=== PATIENT | female | born 1955 | race Caucasian/White ===

== ENCOUNTER 2016-06-03 01:21 | Inpatient (IN) | payer OTHER ==
[~2016-06-03] VITALS: Ht 162.6 cm; Wt 97.5 kg
[~2016-06-03 01:21] MED LIST: ASPIRIN325 M2 PO; LEVOTHYROXINE25 MCG PO; PANTOPRAZOLE SO40 M1 PO; VALSARTAN-HCTZ1 EAC1 PO
--- NOTE | 2016-06-03 09:50 | Operative Report ---
Operative/Inv Procedure Report Surgery Date: 06/03/16 Name of Procedure: Left total knee arthroplasty Pre-Operative Diagnosis: Left knee primary osteoarthritis Post-Operative Diagnosis: Same Estimated Blood Loss: less than 50ml Surgeon/Cake Puller: YAAKOV ROLON,Tanner FREGOSO Anesthesia: block Implants: Halle triathlon total knee system--size 5 femur, size 4 tibia, 9 mm cruciate retaining polyethylene, 31 patella Drains: None Specimens: Femoral, tibial, patellar bone Microbiology: Urine Tourniquet: 59 minutes Complications: None Condition: Stable Operative Indication: Patient is a 61-year-old woman who has a long history of years of gradually worsening left knee symptoms. She was diagnosed with a history osteoarthritis. She developed end-stage degenerative changes and symptoms interfere with normal activities of daily living including prolonged standing or walking, getting up from a seated position as well as gains and out of vehicles. On exam she has also developed a severe flexion contracture to approximately 15. She underwent conservative management including medications, activity modification and injections. She's had short-term relief with conservative measures. She wished to proceed with total knee arthroplasty after risks, benefits and patient discussed including but not limited to persistent knee pain, need for subsequent surgery, infection, DVT, injury to blood vessel or nerve and anesthesia risks. Operative/Procedure Note Note: Patient was brought to the operating room and transferred to the operating table. Once under appropriate anesthesia the left lower extremity was prepped and draped in standard fashion. Preoperative IV antibiotics were given prophylactically. The left lower extremity was elevated exsanguinated and tourniquet was inflated to 300 mm of pressure. A standard anterior incision was made for anticipated medial patellar approach to the knee. Incision was taken down sharply to the underlying retinaculum. A medial retinacular approach was used with minimal extension into the quadriceps tendon. Osteophyte formations were excised of the distal femur and tibia. There was no evidence of any remnant of the ACL. PCL was found to be intact. Remnants of the medial and lateral meniscal tissues were excised. Patella was subluxed and knee was flexed. Retractors were placed medially and laterally. I then used a drill to enter the intramedullary canal for the intramedullary guide for the femur. A 6 cut was predetermined with a 10 mm thickness cut to compensate for patient's flexion contracture. The cut was made while protecting the soft tissues. The femur was then sized to a size 5. Size 5 cutting jig was pinned in place with 3 satisfied with the preparation of the femur. I then turned my attention to the tibia. I used the extra medullary tibial guide. The cutting block was pinned in position for a neutral cut from medial to lateral and reproducing patient's posterior slow-paced on preoperative templating and intraoperative findings. Again the soft tissues were protected during this portion of procedure as well. The cut was made. The tibia was sized to a size 4. I did a trial reduction was size 4 tibia size 5 femur and a 9 mm polyethylene insert. I was satisfied with the soft tissue balancing. No evidence of liftoff with the tibial tray. I then completed the preparation of the patella by measuring, removing the appropriate thickness of the patella and restoring that thickness with a 31 mm patella. The 3 lug holes were drilled. Trialing was done. There was no need for a lateral release. Good fell femoral tracking. I then removed all instruments after marking my rotation of the tibia after taken the knee through range of motion. I drilled the lug holes for the femur and then removed all instrumentation from the knee. Tibial preparation was finished with the appropriate tibial punch. All instrumentation was removed. Copious irrigation of the knee followed. I used the anterior chamfer bone of the femoral cut to plug the intramedullary hole that was made during preparation of the distal femur. This would minimize postoperative hemarthrosis and knee swelling. Cement was being mixed on the back table. Once the cement was ready was applied to the dry clean bony surfaces of the tibia. The size 4 tibial component was impacted in place. Excess cement was removed with curettes. Cement was applied to the dry clean bony surfaces of the femur. The size 5 femur was impacted in place and excess cement was removed with curettes. Cement was applied to the dry clean bony surfaces of the patella after the 9 mm Milena ethylene insert was applied and the knee was taken out to full extension. Excess cement was removed from the patella using a knife. During the cement hardening process I did a periarticular pericapsular injection of a cocktail which included ropivacaine with epinephrine and Toradol for postoperative pain and inflammation management. Once the cement was hardening took the knee through range of motion. Small pieces of excess cement were removed with osteotome. I was satisfied with the soft tissue balancing with a 9 mm insert. Full full extension with about gapping. No mid flexion instability. Flexion was full to gravity. The trial polyethylene was then removed. Copious irrigation the tibial tray followed. I made sure there was no remaining soft tissue, bone fragments or cement fragments within the tibial tray. I then impacted the definitive size 9 mm cruciate retaining polyethylene insert. The locking mechanism was confirmed. Copious irrigation the knee followed. I was satisfied with the stability in all planes as I was before. Copious irrigation followed every level of closure thereafter. Tourniquet was deflated at 59 minutes. Hemostasis was obtained. No need for a drain. The retinacular incision and medial quadriceps incision was repaired with interrupted #1 Vicryl sutures. Subcutaneous tissues closed with 2-0 Vicryl in 2 layers and the skin was closed with a running 3-0 Vicryl suture with the knee in flexion. Appropriate dressings were applied and patient was awakened and taken to recovery room in good condition. No intraoperative Locations. Blood loss was minimal. Discharge Disposition: PACU
--- NOTE | 2016-06-03 14:14 | PN- Orthopedic ---
Subjective Subjective: Awake, alert, no specific complaints at this time. No nausea, tolerating liquids Pain well controlled Objective Vital Signs and I&Os Ruiz output good bp: 122/69 HR 90 sinus RR 16 Sat 96% 3LNC Physical Exam: General: alert and oriented times three Chest: clear anteriorly bilaterally, RRR Abd: soft, good bs Ext: warm, no edema, positive sensate, no calf tenderness, ALPS in place, + movement LLE toes Wound: dressed, dry, ice pack in place OnQ in place Assessment/Plan Assessment/Plan 61 yo female s/p L TKR pain management dvt ppx - ALPS and coumadin (5mg ordered for tonight) abx for 24 hrs post op PT - WBAT Core Measures/Miscellaneous Ruiz Catheter Date In: 06/03/16 Still Needed? Yes (24 hrs post op) Venous Thromboembolism VTE Risk Factors: Age > 40, Surgery VTE Contraindications: No Contraindications VTE Diagnosis: No Beta Meagan Is Beta Meagan a Home Med? No Antibiotics Is Patient on Antibiotics? Yes If Yes: prophylaxis (24 hrs post op)
[2016-06-03 15:00] VITALS: BP 138/88
[2016-06-03 16:00] VITALS: BP 124/82
[2016-06-03 18:00] VITALS: BP 134/70
[2016-06-03 20:05] VITALS: BP 138/72
[2016-06-03 22:15] VITALS: BP 132/88
[2016-06-04 00:12] VITALS: BP 142/76
[2016-06-04 03:49] VITALS: BP 116/63
--- NOTE | 2016-06-04 07:25 | PN- Orthopedic ---
See Addendum Subjective Subjective: The patient is seen this morning postoperatively day #1. She reports that her pain is under adequate control and she has no other complaints the current time aside from a sore left wrist where an IV infiltrated. She denies any chest pain or difficulty breathing and is eager to have her fluids discontinued because she has put out a lot of urine from her Ruiz. Objective Vital Signs and I&Os Vital Signs Date Time Temp Pulse Resp B/P Pulse O2 O2 Flow FiO2 Ox Delivery Rate 06/04 0349 97.8 75 20 116/63 96 Nasal 1.0L Cannula / 0012 97.8 80 20 142/76 94 Nasal 1.0L Cannula / 0000 96 Nasal 1.0L Cannula / 2215 85 20 132/88 95 Nasal 2.0L Cannula 06/03 2040 Nasal 2.0L Cannula /2004 88 18 138/72 94 Room Air / 1800 974.0 86 20 134/70 94 Nasal 2.0L Cannula / 1600 97.0 80 20 124/82 94 Nasal 2.0L Cannula / 1500 96.8 85 20 138/88 95 Nasal 4.0L Cannula / 1500 96.8 85 16 138/88 95 Nasal 4.0L Cannula Intake & Output / 0800 03/07 0000 03/06 1600 03/06 0800 03/06 0000 03/05 1600 Intake Total 920 520 Output Total 1000 1800 Balance -80 -1280 Intake, IV 800 400 Intake, Oral 120 120 Output, Urine 1000 1800 Patient 215 lb Weight Physical Exam: Gen.: Alert and in no obvious distress Skin: Warm and dry Extremities: Bilateral lower extremities are warm without calf tenderness or significant edema. Gross motor and sensory are intact. Left knee surgical dressing is clean, dry, and intact. There is On-Q pain pump in place. Assessment/Plan Assessment/Plan Assessment: 61-year-old female status post left total knee arthroplasty postoperative day #1. The patient is progressing as expected and her pain is under adequate control. Plan: Out of bed with physical therapy patient is weightbearing as tolerated Continue current pain regiment Follow-up morning laboratory studies and dose Coumadin for an INR between 2 and 3 Hep-Lock IV fluids and DC Ruiz catheter Continue On-Q pain pump GI and DVT prophylaxis For surgical dressing change tomorrow Core Measures/Miscellaneous Ruiz Catheter Date In: 06/03/16 Venous Thromboembolism VTE Risk Factors: Age > 40, Surgery VTE Contraindications: No Contraindications VTE Diagnosis: No Beta Meagan Is Beta Meagan a Home Med? No Antibiotics Is Patient on Antibiotics? No
[2016-06-04 08:09] LABS: ABSOLUTE BASOPHIL COUNT 0 /CUMM (0.0-0.2); ABSOLUTE EOSINOPHIL COUNT 0 /CUMM (0.0-0.7); ABSOLUTE GRANULOCYTE CT 9.7 /CUMM (1.4-6.5); ABSOLUTE LYMPH COUNT 1.4 /CUMM (1.2-3.4); ABSOLUTE MONOCYTE COUNT 0.9 /CUMM (0.10-0.60); BASOPHIL % 0.1 % (0.0-2.0); EOSINOPHIL % 0 % (0-5); GRANULOCYTE % 80.7 % (42.2-75.2); HEMATOCRIT 34.8 % (37-47); MEAN CORPUSCULAR HGB 30.7 PG (27.0-31.0); MEAN CORPUSCULAR HGB CONC 34.1 G/DL (33.0-37.0); MEAN PLATELET VOLUME 8.9 FL (7.4-10.4); PLATELET COUNT 241 /CUMM (130-400); RBC DISTRIBUTION WIDTH 12.6 % (11.5-14.5); RED BLOOD CELL CT 3.87 /CUMM (4.20-5.40)
[2016-06-04 08:16] VITALS: BP 142/66
[2016-06-04 14:37] VITALS: BP 140/77
[2016-06-04 22:00] VITALS: BP 124/70
[2016-06-05 07:09] VITALS: BP 119/71
--- NOTE | 2016-06-05 07:33 | PN- Orthopedic ---
See Addendum Subjective Subjective: NAEO. Patient without new complaints of. Pain improved after On-Q pump was adjusted. Tolerate diet without nausea vomiting. Passing flatus, no bowel movement. Bed and ambulating with PT. No chest pain or shortness of breath. Objective Vital Signs and I&Os Vital Signs Date Time Temp Pulse Resp B/P Pulse O2 O2 Flow FiO2 Ox Delivery Rate 06/04 2200 97.4 80 20 124/70 97 Room Air 06/04 1437 98.1 73 20 140/77 97 Room Air 06/04 0919 75 142/66 06/04 0830 20 96 Room Air 06/04 0816 97.9 75 18 142/66 98 Nasal 2.0L Cannula 06/04 08 95 Nasal 1.0L Cannula Intake & Output 06/05 0806/05 0000 06/04 1600 06/04 0800 06/04 0000 06/03 1600 Intake Total 360 480 920 520 Output Total 500 1081 194 3712 1800 Balance -140 -670 -300 -480 -1280 Intake, IV 800 400 Intake, Oral 360 480 120 120 Output, Urine 500 7385 576 2093 1800 Patient 215 lb Weight Physical Exam: General: NAD, comfortable, A&Ox3 Chest: CTAB, no wheezes, no rales. Heart S1S2 normal. Abdomen: soft, nontender, nondistended. Ext: Left knee incision intact with Steri-Strips in plac without surrounding erythema, swelling, signs of infection. No calve swelling/TTP, neurovascularly intact bilateral lower extremities Current Medications: Current Medications Sig/Leoncio Start time Last Medication Dose Route Stop Time Status Admin Al Hydroxide/Mg 30 ML Q6P PRN 06/03 1600 AC Hydroxide PO Cyanocobalamin 1,000 MCG BID 06/04 1000 AC 06/04 PO 2139 Diphenhydramine HCl 25 MG Q4 HRS NEEDED PRN 06/03 2130 AC 06/03 IV 2154 Docusate Sodium 100 MG DAILY NEEDED PRN 06/03 1600 AC PO Ferrous Sulfate 325 MG DAILY 06/04 1000 AC 06/04 PO 1130 Hydrochlorothiazide 12.5 MG DAILY 06/04 1000 AC 06/04 PO 0919 Ketorolac 30 MG Q6-PRN PRN 06/04 1545 AC 06/04 Tromethamine IV 06/06 1546 2139 Levothyroxine Sodium 0.025 MG DAILY AC 06/04 0700 AC 06/05 PO 0526 Losartan Potassium 50 MG DAILY 06/04 1000 AC 06/04 PO 0919 Morphine Sulfate 2 MG Q3P PRN 06/03 1600 AC IV Morphine Sulfate 4 MG Q3P PRN 06/03 1600 AC 06/03 IV 1855 Omeprazole 40 MG DAILY AC 06/03 2345 AC 06/03 PO 2350 Ondansetron HCl 4 MG Q6P PRN 06/03 1600 AC 06/04 IV 2023 Oxycodone/ 1 TAB Q4P PRN 06/03 1600 AC Acetaminophen PO Oxycodone/ 2 TAB Q4P PRN 06/03 1600 AC 06/05 Acetaminophen PO 0232 Pantoprazole Sodium 40 MG AT BEDTIME 06/04 2200 AC 06/04 IV 2139 Pantoprazole Sodium 40 MG DAILY 06/04 1000 DC IV Polyethylene Glycol 17 GM DAILY NEEDED PRN 06/03 1600 AC PO Ropivacaine 500 ML ONCE ONE 06/03 1430 AC 06/03 ON-Q Ball 1 BAG INJ 06/05 1629 1553 Senna/Docusate Sodium 2 TAB AT BEDTIME NEED.. 06/03 1600 AC PO Warfarin Sodium 5 MG COUMADIN 1700 ONE 06/04 1700 DC 06/04 PO 06/04 1701 1610 Results Last 48 Hours of Labs: Laboratory Tests 06/04 0700 Chemistry Sodium (137 - 145 mmol/L) 139 Potassium (3.5 - 5.1 mmol/L) 4.2 Chloride (98 - 107 mmol/L) 103 Carbon Dioxide (22 - 30 mmol/L) 28 Anion Gap (5 - 16) 8 BUN (7 - 17 mg/dL) 11 Creatinine (0.5 - 1.0 mg/dL) 0.8 Estimated GFR (>60 ml/min) > 60 BUN/Creatinine Ratio (7 - 25 %) 13.8 Coagulation PT (9.4 - 12.5 SEC) 12.0 INR (0.90 - 1.19) 1.14 Hematology CBC w Diff NO MAN DIFF REQ WBC (4.8 - 10.8 /CUMM) 12.0 H RBC (4.20 - 5.40 /CUMM) 3.87 L Hgb (12.0 - 16.0 G/DL) 11.9 L Hct (37 - 47 %) 34.8 L MCV (81.0 - 99.0 FL) 90.0 MCH (27.0 - 31.0 PG) 30.7 RDW (11.5 - 14.5 %) 12.6 Plt Count (130 - 400 /CUMM) 241 MPV (7.4 - 10.4 FL) 8.9 Gran % (42.2 - 75.2 %) 80.7 H Lymphocytes % (20.5 - 51.1 %) 11.3 L Monocytes % (1.7 - 9.3 %) 7.9 Eosinophils % (0 - 5 %) 0 Basophils % (0.0 - 2.0 %) 0.1 Absolute Granulocytes (1.4 - 6.5 /CUMM) 9.7 H Absolute Lymphocytes (1.2 - 3.4 /CUMM) 1.4 Absolute Monocytes (0.10 - 0.60 /CUMM) 0.9 H Absolute Eosinophils (0.0 - 0.7 /CUMM) 0 Absolute Basophils (0.0 - 0.2 /CUMM) 0 PUBS MCHC (33.0 - 37.0 G/DL) 34.1 Assessment/Plan Assessment/Plan 61yo F POD#2 status post left total knee arthroplasty. AVSS, patient progressing well. - Pain control - When necessary Zofran - Bowel regimen - Follow-up INR, dose Coumadin for INR 2-3 - Alps - I/O's - Out of bed and ambulate with PT, weightbearing as tolerated - Continue diet - Daily dressing changes by RN - Likely DC home tomorrow - Will discuss with attending Core Measures/Miscellaneous Ruiz Catheter Date In: 06/03/16 Venous Thromboembolism VTE Risk Factors: Age > 40, Surgery VTE Contraindications: No Contraindications VTE Diagnosis: No Beta Meagan Is Beta Meagan a Home Med? No Antibiotics Is Patient on Antibiotics? No
--- NOTE | 2016-06-05 07:34 | Patient Discharge Instructions ---
Discharge Instructions General Discharge Information You were seen/treated for: Left knee primary OA/DJD You had these procedures: 06/03/16 Left total knee replacment Watch for these problems: Redness, swelling, fever, signs of infection. Uncontrolled pain, Excessive bleeding. Decreased range of motion or unable to bear weight. Chest pain, shortness of breath. Do not soak the wound: Yes No bath, but you may shower: Yes Other wound care: Daily dressing changes or as needed Diet Continue normal diet: Yes Activity Activity Self Limited: Yes Activity Limited to: Weight bear as tolerated Additional ACTIVITY Info: Daily the physical therapy Acute Coronary Syndrome Inclusion Criteria At DC or during hospital stay patient has or had the following: ACS DIAGNOSIS No Discharge Core Measures Meds if any: Prescribed or Continued at Discharge Meds if any: NOT Prescribed or Continued at Discharge Congestive Heart Failure Inclusion Criteria At DC or during hospital stay patient has or had the following: CHF DIAGNOSIS No Discharge Core Measures Meds if any: Prescribed or Continued at Discharge Meds if any: NOT Prescribed or Continued at Discharge Cerebrovascular accident Inclusion Criteria At DC or during hospital stay patient has or had the following: CVA/TIA Diagnosis No Discharge Core Measures Meds if any: Prescribed or Continued at Discharge Meds if any: NOT Prescribed or Continued at Discharge Venous thromboembolism Inclusion Criteria VTE Diagnosis No VTE Type NONE VTE Confirmed by (Test) NONE Discharge Core Measures - Per Current guidelines, there needs to be overlap - treatment for the first 5 days of Warfarin therapy. - If discharged on Warfarin prior to 5 days of - overlap therapy, the patient will need to be - assessed for post discharge needs including - *Post discharge parental anticoagulation - *Warfarin and/or parental anticoagulation education - *Follow up date to check INR post discharge At least 5 days overlap therapy as Inpatient No Meds if any: Prescribed or Continued at Discharge Note: Overlap Therapy is Warfarin and Anticoagulant Meds if any: NOT Prescribed or Continued at Discharge
--- NOTE | 2016-06-05 07:36 | Discharge Summary ---
Visit Information Visit Dates Admission Date: 06/03/16 Discharge Date: 06/06/16 Hospital Course Course Attending Physician: ZENOBIA NUNO MD Primary Care Physician: CRYS SUNSHINE MD Hospital Course: Patient admitted to floor following procedure below. Patient ambulated with PT upon arrival to the floor. Patient continued to progress well. Upon discharge patient is afebrile, tolerating diet, pain controlled, ambulating well with rolling walker and PT. Complications: None Allergies: Coded Allergies: prochlorperazine (UNKNOWN 05/31/16) Significant Procedures: 06/03/16 left total knee replacement Disposition Summary Disposition Principal Diagnosis: Left knee primary osteoarthritis/DJD Additional Diagnosis: None Discharge Disposition: home health services Discharge Instructions General Discharge Information Code Status: Full Code Patient's Diet: Resume normal diet Patient's Activity: Weightbearing as tolerated Daily with physical therapy Follow-Up Instructions/Appts: Please call office to schedule/confirm appointment Medications at Discharge Discharge Medications: Continue taking these medications: Aspirin (Aspirin*) 325 MG TABLET 1 Tablet ORAL DAILY Comments: NOT GIVEN IN HOSPITAL Levothyroxine Sodium (Levothyroxine Sodium) 25 MCG TABLET 1 Tablet ORAL DAILY Comments: Last Taken: 06/06/16 Time: 0540 AM Pantoprazole Sodium (Pantoprazole Sodium) 40 MG TABLET.DR 1 Tablet ORAL DAILY Comments: Last Taken: 06/05/16 Time: 9:40 PM Valsartan/Hydrochlorothiazide (Valsartan-Hctz 160-12.5 MG Tab) 160 MG-12.5 MG TABLET 1 Tablet ORAL DAILY Comments: Last Taken: 06/06/16 Time: 0850 AM COZAAR AND HYDROCHLOROTHIAZIDE GIVEN Start taking the following new medications: Warfarin Sodium (Coumadin) 5 MG TABLET 1 Tablet ORAL DAILY Qty = 60 No Refills Instructions: TO BE DOSED ACCORDING TO INR. GOAL INR 2-3. INR TWICE WEEKLY UNTIL STABLE Comments: Last Taken: 06/05/16 Time: 8:00 PM Oxycodone HCl/Acetaminophen (Percocet 5-325 MG Tablet) 5 MG-325 MG TABLET 1-2 Tablet ORAL EVERY 4-6 HOURS as needed for PAIN Qty = 36 No Refills Comments: Last Taken: 06/06/16 Time: 1000 AM Diazepam (Valium) 5 MG TABLET 1 Tablet ORAL THREE TIMES A DAY NEEDED Qty = 10 No Refills Comments: Last Taken: 06/06/16 Time: 0530 AM Copies To: BITA ROLON,CRYS Valdes
[2016-06-05 08:51] LABS: PT 13.7 SEC (9.4-12.5)
--- NOTE | 2016-06-05 14:02 | RADIOLOGY REPORT ---
EXAMINATION: XR KNEE, LEFT CLINICAL INFORMATION: Status post left total knee arthroplasty. COMPARISON: Left knee films dated 07/09/2006. TECHNIQUE: Two views of the left knee. FINDINGS: The patient is status post total left knee arthroplasty with the prosthetic components appearing intact and in anatomic alignment. No cata[place] bone fracture is seen. Soft tissue swelling about the knee and subcutaneous emphysema is noted, consistent with postoperative state. Small suprapatellar knee joint effusion is noted. IMPRESSION: Anatomic alignment status post total left knee arthroplasty with no evidence of hardware failure or catawba bone fracture.
[2016-06-05 14:57] VITALS: BP 118/74
[2016-06-05 22:32] VITALS: BP 112/66
[2016-06-06 07:36] VITALS: BP 143/80
[2016-06-06] MEDS ORDERED: COUMADIN5 M2 PO (07:43)
[2016-06-06] MEDS ORDERED: VALIUM5 M2 PO ×2 (07:44→11:26)
[2016-06-06] MEDS ORDERED: PERCOCET 5-3251 EACH PO ×2 (07:44→11:26)
--- NOTE | 2016-06-06 07:47 | PN- Orthopedic ---
Subjective Subjective: Awake, alert No complaints Pain well controlled, ambulating with PT Objective Vital Signs and I&Os Vital Signs Date Time Temp Pulse Resp B/P Pulse O2 O2 Flow FiO2 Ox Delivery Rate 06/06 0736 98.2 76 20 143/80 95 06/05 2232 98.8 85 18 112/66 94 06/05 1457 97.9 82 18 118/74 94 Room Air 06/05 1017 82 134/80 Intake & Output 06/06 0000 06/05 1600 06/05 0806/05 0000 06/04 1600 Intake Total 200 1000 360 480 Output Total 600 354 348 4403 700 Balance -400 450 -590 -670 -700 Intake, Oral 200 1000 360 480 Output, Urine 600 477 752 6758 700 Physical Exam: vss, afebrile No BM yet General: alert and oriented times three Chest: clear anteriorly bilaterally, RRR Abd: soft, good bs Ext: warm, edema LLL, positive sensate Wound: looks good, no drainage or erythema Assessment/Plan Assessment/Plan 61 yo female s/p L TKR pod 3 plan to dc home with services coumadin per INR add valium to pain regimen bowel regimen Core Measures/Miscellaneous Ruiz Catheter Date In: 06/03/16 Venous Thromboembolism VTE Risk Factors: Age > 40, Surgery VTE Contraindications: No Contraindications VTE Diagnosis: No Beta Meagan Is Beta Meagan a Home Med? No Antibiotics Is Patient on Antibiotics? No
[2016-06-06 08:24] LABS: ABSOLUTE EOSINOPHIL COUNT 0 /CUMM (0.0-0.7); ABSOLUTE GRANULOCYTE CT 3.5 /CUMM (1.4-6.5); ABSOLUTE MONOCYTE COUNT 0.5 /CUMM (0.10-0.60); EOSINOPHIL % 0 % (0-5); MEAN CORPUSCULAR HGB 30.4 PG (27.0-31.0); MEAN CORPUSCULAR HGB CONC 33.7 G/DL (33.0-37.0); MEAN CORPUSCULAR VOLUME 90.2 FL (81.0-99.0); RBC DISTRIBUTION WIDTH 12.7 % (11.5-14.5)
[2016-06-06 08:32] LABS: PT 14.6 SEC (9.4-12.5)
[2016-06-06 08:51] LABS: ABSOLUTE BASOPHIL COUNT 0.1 /CUMM (0.0-0.2); ABSOLUTE LYMPH COUNT 1.4 /CUMM (1.2-3.4); GRANULOCYTE % 65.1 % (42.2-75.2); HEMATOCRIT 32.3 % (37-47); MEAN PLATELET VOLUME 8.8 FL (7.4-10.4); PLATELET COUNT 227 /CUMM (130-400); RED BLOOD CELL CT 3.58 /CUMM (4.20-5.40)
[2016-06-06 08:54] VITALS: BP 130/68
[2016-06-06 08:58] LABS: WHITE BLOOD CELL COUNT 5.4 /CUMM (4.8-10.8)
== END 2016-06-06 12:15 | disposition home health service (06) | DRG 470 ==
LOC: ENRESERVDT → ENRESERVTM → ENPENDDIS 01:21 → SDA 01:21 → 2NB 15:01
PROVIDERS: Physician Assistant; Physician Assistant Surgical; ADMIT Orthopaedic Surgery
PROC: 0SRD0J9 Replacement of Left Knee Joint with Synthetic Substitute, Cemented, Open Approach (ICD-10-PCS; principal; 2016-06-03)
DX: M17.12 Unilateral primary osteoarthritis, left knee (principal); E66.01 Morbid (severe) obesity due to excess calories; I10 Essential (primary) hypertension; K21.9 Gastro-esophageal reflux disease without esophagitis; E03.9 Hypothyroidism, unspecified; Z85.3 Personal history of malignant neoplasm of breast; Z68.35 Body mass index [BMI] 35.0-35.9, adult
CPT/HCPCS: 2NSBP; 36415; 73560-LT; 82436; 87086; 88305; 97110-GO; 97116-GO; 97161-GP; 97530-GO; C1713; J0131; J0171; J1200; J1885; J2405; J2795; J3370; J7040; J7060

== ENCOUNTER 2017-04-23 10:58 | Emergency (ER) | payer OTHER ==
[~2017-04-23] VITALS: Ht 162.6 cm; Wt 95.3 kg
[~2017-04-23 10:58] MED LIST changes: +COUMADIN5 M2 PO; +PERCOCET 5-3251 EACH PO; +VALIUM5 M2 PO
--- NOTE | 2017-04-23 11:10 | ED MVC/FALL/TRAUMA COMPLAINT ---
History of Present Illness General Chief Complaint: Neck/Upper Back Pain/Injury Stated Complaint: PAUL SUNSHINE FOR CT SCAN Source: patient Exam Limitations: no limitations Vital Signs & Intake/Output Vital Signs & Intake/Output Vital Signs Date Time Temp Pulse Resp B/P B/P Pulse O2 O2 Flow FiO2 Mean Ox Delivery Rate 04/23 1400 98.0 04/23 1305 98.0 70 15 128/80 99 Room Air Room Air 04/23 1213 Room Air Room Air 04/23 1105 98.2 76 18 136/85 98 Room Air Allergies Coded Allergies: tramadol (Severe, RACING HEART 04/23/17) prochlorperazine (UNKNOWN 05/31/16) Reconcile Medications Aspirin (Aspirin*) 325 MG TABLET 1 TAB PO DAILY PROPHO (Reported) Diazepam (Valium) 5 MG TABLET 1 TAB PO TIDPRN SPASMS Levothyroxine Sodium 25 MCG TABLET 1 TAB PO DAILY HYPOTHYROID (Reported) Meloxicam (Mobic) 15 MG TABLET 1 TAB PO DAILY PAIN Methocarbamol (Robaxin-750) 750 MG TABLET 1 TAB PO TID PRN PAIN Oxycodone HCl/Acetaminophen (Percocet 5-325 MG Tablet) 5 MG-325 MG TABLET 1-2 TAB PO Q4-6 PRN PAIN Pantoprazole Sodium 40 MG TABLET. 1 TAB PO DAILY GERD (Reported) Valsartan/Hydrochlorothiazide (Valsartan-Hctz 160-12.5 MG Tab) 160 MG-12.5 MG TABLET 1 TAB PO DAILY HTN (Reported) Warfarin Sodium (Coumadin) 5 MG TABLET 1 TAB PO DAILY BLOOD THINNER TO BE DOSED ACCORDING TO INR. GOAL INR 2-3. INR TWICE WEEKLY UNTIL STABLE Triage Note: 62 YO FEMALE TO TRIAGE FROM DR SUNSHINE. STATES SHE WAS WALKING HER DOG ON FRIDAY AND TRIPPED AND FELL. STATES SHE FELL ONTO HER FACE. DENIES LOC. C/O BACK ARCOSS BACK OF SHOULDERS, NECK PAIN, HEADACHE. STATES ALVARENGA HAS BEEN CONSTANT SINCE THE HEADSTRIKE. ALSO C/O PAIN TO L HAND. STATES RECENT L KNEE REPLACEMENT, STATES SHE ALWAYS HAS PAIN IN IT SO SHES UNSURE IF SHE INJURED THE KNEE WELL. STATES HAS BEEN USING ICE AND MOTRIN, FLEXERIL. Triage Nurses Notes Reviewed? yes Onset: Abrupt Duration: day(s): (3-4), constant, continues in ED, getting worse Timing: single episode today Severity: moderate, severe Severity Numbers: 7 Injuries/Fall Location: head, face, neck, upper extremity, lower extremity Method of Injury: fall Loss of Consciousness: no loss of consciousness No Modifying Factors: none Associated Symptoms: headache, muscle spasms, neck pain LMP (ages 10-50): unknown : No Patient currently breastfeeds: No HPI: 62-year-old female past medical history of hypertension, osteoarthritis presents for evaluation after a fall. Patient states that about 5 days ago she was outside walking her dog when the dog suddenly pulled her causing her to fall and hit her head. She states that she has pain in her head neck both shoulders and right thumb. Patient also reports that she had a left knee replacement back in June 2016. She denies any pain in the knee but is concerned that it may be disrupted. There was no loss of consciousness. She remembers the entire event. She currently is not taking any blood thinners. She states that the worst pain is in her neck feels stiff and the pain is worse with movement. She states that initially after the fall she felt a little bit nauseous but there is no vomiting. No changes in vision. The pain in her shoulders is worse with movement. She's been taking ibuprofen and Flexeril without much improvement. She also reports that while she was on the ground her dog scratched the left side of her face and she is concerned that she may have an infection there. She saw her primary care doctor today who sent her in for imaging. No abdominal pain, elbow pain, chest pain. (Will Davies) Past History Travel History Traveled to [place] past 21 day No Medical History Any Pertinent Medical History? see below for history Neurological: NONE EENT: NONE Cardiovascular: hypertension Respiratory: NONE Gastrointestinal: GERD Hepatic: NONE Renal: NONE Musculoskeletal: osteoarthritis Psychiatric: NONE Endocrine: NONE Blood Disorders: NONE Cancer(s): BREAST CANCER History of MRSA: No History of VRE: No History of CDIFF: No Influenza Vaccine: 11/29/10 Surgical History Surgical History: none, non-contributory Psychosocial History Who do you live with Spouse Services at Home None What is your primary language Sudanese Tobacco Use: Never used Family History Hx Contributory? No (Will Davies) Review of Systems Review of Systems Constitutional: Reports: no symptoms. Eyes: Reports: no symptoms. Ears, Nose, Throat, Mouth: Reports: no symptoms. Respiratory: Reports: no symptoms. Cardiovascular: Reports: no symptoms. Gastrointestinal/Abdominal: Reports: no symptoms. Genitourinary: Reports: no symptoms. Musculoskeletal: Reports: see HPI, back pain, joint pain, joint swelling, muscle pain, muscle stiffness, neck pain. Skin: Reports: no symptoms. Neurological/Psychological: Reports: see HPI, headache. All Other Systems: Reviewed and Negative (Faraz HADLEY,Will) Physical Exam Physical Exam General Appearance: well developed/nourished, no apparent distress, alert, awake , obese Head: atraumatic, normal appearance, NO SCALP HEMATOMAS OR LACERATIONS. nO AYALA SIGNS OR RACCOON EYES., there is a superficial abrasion to the left side perioral area. there is no stranding erythema or discharge. There is some soft tissue swelling. There is mildly tender. Eyes: Bilateral: normal appearance, PERRL, EOMI. Ears, Nose, Throat, Mouth: moist mucous membrane, SUPERFICIAL ABRASION TO THE BRIDGE OF THE NOSE Neck: c COLLAR IS IN PLACE. pATIENT HAS MIDLINE TENDERNESS TO PALPATION OF THE CERVICAL SPINE. bILATERAL PARASPINOUS MUSCLES ALSO TENDER. Respiratory: normal breath sounds, chest non-tender, no respiratory distress, lungs clear, NO PAIN WITH PALPATION OF THE BILATERAL RIBS Cardiovascular: regular rate/rhythm, normal peripheral pulses Peripheral Pulses: 2+ radial (R), 2+ radial (L) Gastrointestinal: soft, non-tender Back: normal inspection, normal range of motion, THORACIC SPINE AND PARASPINOUS MUSCLES TENDER TO PALPATION BILATERALLY. nO MIDLINE TENDERNESS OF THE LUMBAR SPINE. nO STEP-OFFS OR DEFORMITIES NO BRUISING SWELLING OR ABRASIONS Extremities: THE BILATERAL ANTERIOR AND POSTERIOR DELTOIDS ARE TENDER TO PALPATION. fULL RANGE OF MOTION OF THE BILATERAL SHOULDERS IS INTACT WITH PAIN. pATIENT HAS PAIN WITH PALPATION OF THE RIGHT AC JOINT. nO GROSS DEFORMITY OR CREPITUS. nO BRUISING SWELLING OR ABRASIONS. fULL RANGE OF MOTION OF THE BILATERAL ELBOWS AND WRISTS. pATIENT DOES HAVE TENDERNESS TO PALPATION OF THE LEFT PROXIMAL THUMB AND RADIAL ASPECT OF THE WRIST. tHE LEFT ANATOMICAL SNUFFBOX IS TENDER TO PALPATION. fULL RANGE OF MOTION OF THE WRIST IS INTACT. nEUROVASCULAR SUPPLY IS INTACT TO THE BILATERAL UPPER EXTREMITIES. fULL RANGE OF MOTION OF THE BILATERAL LOWER EXTREMITIES IS INTACT. pATIENT HAS NO SWELLING OR TENDERNESS PALPATION OF THE LEFT KNEE. lEFT KNEE JOINT INCISION IS CLEAN DRY AND INTACT. pATIENT HAS BEEN ABLE TO WALK AND BEAR WEIGHT NO HIP TENDERNESS TO PALPATION BILATERALLY Neurologic/Psych: no motor/sensory deficits, awake, alert, oriented x 3, normal gait Skin: intact, normal color, warm/dry Core Measures ACS in differential dx? No CVA/TIA Diagnosis No Sepsis Present: No Sepsis Focused Exam Completed? No (Faraz HADLEY,Will) Progress Differential Diagnosis: C/T/L spine injury, ext injury, ICH, fracture, contusion , sprain Plan of Care: Orders Procedure Date/time Status Durable Medical Equipment 04/23 1339 Active Patient seen and evaluated. She fell 5 days ago with head strike. She has neck pain and is in a c-collar. She also has bilateral shoulder pain and left thumb/ wrist pain. X-rays and CT scans are negative for fracture. Patient is able to walk and bear weight. She does have snuffbox tenderness. She was placed into a thumb spica splint and instructed to wear the splint for one to 2 weeks and repeat x-rays to rule out scaphoid fracture. Patient will be given meloxicam and Robaxin to use for pain control. Advised rest ice elevation compression. Avoid excessive physical activity. Discussed return precautions in detail patient is nontoxic-appearing agrees the plan. Case discussed with Dr. Sunshine. Dr. Sunshine agrees. Diagnostic Imaging: Viewed by Me: Radiology Read, CT Scan. Discussed w/RAD: Radiology Read, CT Scan. Radiology Impression: PATIENT: SHAYE SHOOK PRESENT AGE: 62 PATIENT ACCOUNT NO: [id number] : 56 LOCATION: [facility] ORDERING PHYSICIAN: Will HADLEY SERVICE DATE: 04/23/17111 EXAM TYPE: CAT - CT CERV SPINE WO IV CONTRAST; CT HEAD WO IV CONTRAST EXAMINATION: CT HEAD WITHOUT CONTRAST CT CERVICAL SPINE WITHOUT CONTRAST CLINICAL INFORMATION: Fall COMPARISON: Fall with head and neck pain. Assess for fracture. TECHNIQUE: Multidetector CT imaging of the head and cervical spine was performed without the use of intravenous contrast. Coronal and sagittal reformatted images were generated at the technologist workstation. DLP: 887.99 mGy-cm. FINDINGS: CT head : There is no evidence of acute intracranial hemorrhage or territorial infarction. No abnormal mass-effect or midline shift is seen. King to white matter differentiation is well preserved. No extra-axial fluid collections are identified. The ventricles are normal in size. There is no abnormal attenuation within the brain parenchyma. There are no acute osseous findings. There is hyperostosis frontalis interna. There are no large scalp contusions or hematomas. The mastoid air cells and visualized portions of the paranasal sinuses are well-aerated. CT cervical spine: There is a mild degenerative anterolisthesis of C3 on C4 secondary to left facet arthropathy. There is multilevel narrowing of intervertebral disc height with degenerative endplate contour changes and sclerosis, most severe at C4-C5. There are no compression fractures. There is normal alignment of the facets. There is narrowing of the left lateral C1-C2 articulation with osteophytosis consistent with degenerative changes. Atlantooccipital articulations appear normal. The lateral masses of C1 and C2 are normally aligned the dens is intact. There is a cyst along the posterior dens. There is multilevel calcification of the posterior longitudinal ligament, most severe at C5-C6. There is multilevel foraminal narrowing. There is central stenosis at C4-C5 and C5-C6 from posterior osteophytic ridges. The soft tissues of the neck are unremarkable. The visualized lung apices are well- aerated. IMPRESSION: 1. There are no acute bleeds or territorial infarcts. The osseous structures and scalp are unremarkable. 2. There are multilevel spondylitic changes in the cervical spine. There are no acute fractures or subluxations. DICTATED BY: Alli Gonzalez MD DATE/TIME DICTATED:04/23/171130 ADVERTISING EDITOR:TANIA DATE/TIME TRANSCRIBED:04/23/171130 CONFIDENTIAL, DO NOT COPY WITHOUT APPROPRIATE AUTHORIZATION. <Electronically signed in Other Vendor System> SIGNED BY: Alli Gonzalez MD 04/23/17 1204, PATIENT: SHAYE SHOOK PRESENT AGE: 62 PATIENT ACCOUNT NO: [id number] : 56 LOCATION: [facility] ORDERING PHYSICIAN: Will HADLEY SERVICE DATE: 04/23/17007 EXAM TYPE: RAD - XRY-THORACIC SPINE EXAMINATION: XR THORACIC SPINE CLINICAL INFORMATION: Status post trauma, fall. Thoracic spine tenderness. COMPARISON: CT scan of the chest dated 12/29/2015. TECHNIQUE: 2 views of the thoracic spine were obtained. FINDINGS: There is no fracture or bone destruction seen and the vertebral alignment is normal. There is no disc space narrowing. There is no abnormality of the paraspinal soft tissues. IMPRESSION: Unremarkable examination. DICTATED BY: Adore Horn MD DATE/ TIME DICTATED:04/23/171318 ADVERTISING EDITOR:TANIA DATE/TIME TRANSCRIBED: 04/23/171318, PATIENT: SHAYE SHOOK PRESENT AGE: 62 PATIENT ACCOUNT NO: [id number] : 56 LOCATION: [facility] ORDERING PHYSICIAN: Will HADLEY SERVICE DATE: 04/23/17 EXAM TYPE: RAD - XRY- KNEE COMPLETE LEFT EXAMINATION: XR KNEE, LEFT CLINICAL INFORMATION: Fall, pain. COMPARISON: 06/05/2016 TECHNIQUE: 4 views of the left knee. FINDINGS: Left knee arthroplasty components are stable in position and alignment. No suspicious garland -hardware lucency. No visible acute fracture or dislocation. Small effusion. IMPRESSION: Stable appearance of the left total knee arthroplasty. Small effusion. No radiographic evidence of discrete acute fracture. DICTATED BY: Quinn Stacy MD DATE/TIME DICTATED:04/23/171322 ADVERTISING EDITOR:TANIA DATE/TIME TRANSCRIBED:04/23/171322 CONFIDENTIAL, DO NOT COPY WITHOUT APPROPRIATE AUTHORIZATION., PATIENT: SHAYE SHOOK PRESENT AGE: 62 PATIENT ACCOUNT NO: [id number] : 56 LOCATION: [facility] ORDERING PHYSICIAN: Will HADLEY SERVICE DATE: 04/23/17 EXAM TYPE: RAD - XRY-SHOULDER COMPLETE-LEFT; XRY-SHOULDER COMPLETE-RIGHT EXAMINATION: XR BILATERAL SHOULDERS CLINICAL INFORMATION: Fall, pain. COMPARISON: None. TECHNIQUE: Each 4 views. FINDINGS: RIGHT SHOULDER: Moderate AC joint arthritis. Normal articulation at the glenohumeral joint. Mild spurring from the inferior glenoid. Glenohumeral joint space is maintained. No evidence of acute fracture or dislocation. Surgical clips in the right axilla. LEFT SHOULDER: Moderate AC joint degeneration. Mild degenerative spurring at the glenohumeral joint. No evidence of acute fracture or dislocation. IMPRESSION: 1. No radiographic evidence of acute fracture. 2. Degenerative changes as above. DICTATED BY: Quinn Stacy MD DATE/TIME DICTATED:04/23/171318 ADVERTISING EDITOR:TANIA DATE/TIME TRANSCRIBED:04/23/171318 CONFIDENTIAL, DO NOT COPY WITHOUT APPROPRIATE AUTHORIZATION., PATIENT: SHAYE SHOOK PRESENT AGE: 62 PATIENT ACCOUNT NO: [id number] : 56 LOCATION: [facility] ORDERING PHYSICIAN: Will HADLEY SERVICE DATE: 04/23/17 EXAM TYPE: RAD - XRY-HAND, LEFT EXAMINATION: XR HAND, LEFT CLINICAL INFORMATION: Status post fall presenting with left thumb pain. COMPARISON: There are no prior studies for comparison. TECHNIQUE: PA, lateral, and oblique views of the left hand. FINDINGS : No cortical defects are noted throughout the bony structures of the left thumb or throughout the bony structures of the hand. Degenerative changes are most prominent at the distal interphalangeal joint of the left thumb as well as in the first digit carpometacarpal region. No cortical defects are noted throughout the bony structures and bony alignment is within normal limits. There is no evidence of a wrist joint effusion on the lateral view. IMPRESSION: No radiographic evidence of acute fracture or subluxation is present at this time. DICTATED BY: Adore Horn MD DATE/TIME DICTATED:04/23/171319 ADVERTISING EDITOR:TANIA DATE/TIME TRANSCRIBED:04/23/171319 (Will Davies) Departure Departure Disposition: HOME OR SELF CARE Condition: Stable Clinical Impression Primary Impression: Fall Qualifiers: Encounter type: initial encounter Qualified Code: W19.XXXA - Unspecified fall, initial encounter Referrals: Lizbeth ROLON,Stephan Valdes (PCP/Family) Additional Instructions: Rest, avoid heavy lifting bending or excessive physical activity. Apply ice for 15-20 minutes every few hours. Wear left wrist splint for the next 1-2 weeks. If you still have pain you need a repeat x-ray of the wrist. Meloxicam can be used as directed for pain. Robaxin as a muscle relaxer that can also be used every 8 hours as needed for pain. This may cause drowsiness. Make a follow-up appointment with Dr. Sunshine if your pain continues. Apply warm compresses to the scratch on the left side of the face. Monitor symptoms of easy spreading redness worsening swelling worsening pain YOU may need an antibiotic. Monitor symptoms return with any concerns. Departure Forms: Customer Survey General Discharge Information Prescriptions: Current Visit Scripts Meloxicam (Mobic) 1 TAB PO DAILY #30 TAB Methocarbamol (Robaxin-750) 1 TAB PO TID PRN PAIN #30 TAB (Will Davies) PA/REGIONAL MEDICAL DIRECTOR Co-Sign Statement Statement: ED Attending supervision documentation- [] I saw and evaluated the patient. I have also reviewed all the pertinent lab results and diagnostic results. I agree with the findings and the plan of care as documented in the PA's/REGIONAL MEDICAL DIRECTOR's documentation. [X] I have reviewed the ED Record and agree with the PA's/REGIONAL MEDICAL DIRECTOR's documentation. [] Additions or exceptions (if any) to the PAs/REGIONAL MEDICAL DIRECTOR's note and plan are summarized below: [] (Juan ROLON,Jennifer)
--- NOTE | 2017-04-23 12:04 | CT SCAN REPORT ---
EXAMINATION: CT HEAD WITHOUT CONTRAST CT CERVICAL SPINE WITHOUT CONTRAST CLINICAL INFORMATION: Fall COMPARISON: Fall with head and neck pain. Assess for fracture. TECHNIQUE: Multidetector CT imaging of the head and cervical spine was performed without the use of intravenous contrast. Coronal and sagittal reformatted images were generated at the technologist workstation. DLP: 887.99 mGy-cm. FINDINGS: CT head: There is no evidence of acute intracranial hemorrhage or territorial infarction. No abnormal mass-effect or midline shift is seen. King to white matter differentiation is well preserved. No extra-axial fluid collections are identified. The ventricles are normal in size. There is no abnormal attenuation within the brain parenchyma. There are no acute osseous findings. There is hyperostosis frontalis interna. There are no large scalp contusions or hematomas. The mastoid air cells and visualized portions of the paranasal sinuses are well-aerated. CT cervical spine: There is a mild degenerative anterolisthesis of C3 on C4 secondary to left facet arthropathy. There is multilevel narrowing of intervertebral disc height with degenerative endplate contour changes and sclerosis, most severe at C4-C5. There are no compression fractures. There is normal alignment of the facets. There is narrowing of the left lateral C1-C2 articulation with osteophytosis consistent with degenerative changes. Atlantooccipital articulations appear normal. The lateral masses of C1 and C2 are normally aligned the dens is intact. There is a cyst along the posterior dens. There is multilevel calcification of the posterior longitudinal ligament, most severe at C5-C6. There is multilevel foraminal narrowing. There is central stenosis at C4-C5 and C5-C6 from posterior osteophytic ridges. The soft tissues of the neck are unremarkable. The visualized lung apices are well-aerated. IMPRESSION: 1. There are no acute bleeds or territorial infarcts. The osseous structures and scalp are unremarkable. 2. There are multilevel spondylitic changes in the cervical spine. There are no acute fractures or subluxations.
[2017-04-23 13:05] VITALS: BP 128/80
--- NOTE | 2017-04-23 13:23 | RADIOLOGY REPORT ---
EXAMINATION: XR THORACIC SPINE CLINICAL INFORMATION: Status post trauma, fall. Thoracic spine tenderness. COMPARISON: CT scan of the chest dated 12/29/2015. TECHNIQUE: 2 views of the thoracic spine were obtained. FINDINGS: There is no fracture or bone destruction seen and the vertebral alignment is normal. There is no disc space narrowing. There is no abnormality of the paraspinal soft tissues. IMPRESSION: Unremarkable examination.
--- NOTE | 2017-04-23 13:26 | RADIOLOGY REPORT ---
EXAMINATION: XR HAND, LEFT CLINICAL INFORMATION: Status post fall presenting with left thumb pain. COMPARISON: There are no prior studies for comparison. TECHNIQUE: PA, lateral, and oblique views of the left hand. FINDINGS: No cortical defects are noted throughout the bony structures of the left thumb or throughout the bony structures of the hand. Degenerative changes are most prominent at the distal interphalangeal joint of the left thumb as well as in the first digit carpometacarpal region. No cortical defects are noted throughout the bony structures and bony alignment is within normal limits. There is no evidence of a wrist joint effusion on the lateral view. IMPRESSION: No radiographic evidence of acute fracture or subluxation is present at this time.
--- NOTE | 2017-04-23 13:33 | RADIOLOGY REPORT ---
EXAMINATION: XR KNEE, LEFT CLINICAL INFORMATION: Fall, pain. COMPARISON: 06/05/2016 TECHNIQUE: 4 views of the left knee. FINDINGS: Left knee arthroplasty components are stable in position and alignment. No suspicious garland-hardware lucency. No visible acute fracture or dislocation. Small effusion. IMPRESSION: Stable appearance of the left total knee arthroplasty. Small effusion. No radiographic evidence of discrete acute fracture.
--- NOTE | 2017-04-23 13:33 | RADIOLOGY REPORT ---
EXAMINATION: XR BILATERAL SHOULDERS CLINICAL INFORMATION: Fall, pain. COMPARISON: None. TECHNIQUE: Each 4 views. FINDINGS: RIGHT SHOULDER: Moderate AC joint arthritis. Normal articulation at the glenohumeral joint. Mild spurring from the inferior glenoid. Glenohumeral joint space is maintained. No evidence of acute fracture or dislocation. Surgical clips in the right axilla. LEFT SHOULDER: Moderate AC joint degeneration. Mild degenerative spurring at the glenohumeral joint. No evidence of acute fracture or dislocation. IMPRESSION: 1. No radiographic evidence of acute fracture. 2. Degenerative changes as above.
[2017-04-23] MEDS ORDERED: ROBAXIN-750750 M1 PO (13:41)
[2017-04-23] MEDS ORDERED: MOBIC15 M1 PO (13:41)
== END 2017-04-23 14:01 ==
LOC: ERH 10:58
DX: R51 Headache (principal); M54.2 Cervicalgia; M25.511 Pain in right shoulder; M25.512 Pain in left shoulder; M79.644 Pain in right finger(s)
CPT/HCPCS: 72070; 73030-LT; 73030-RT; 73130-LT; 73562-LT